=== PATIENT | female | born 1990 | race Caucasian/White ===

== ENCOUNTER 2022-09-09 07:46 | Day surgery (SDC) | payer OTHER ==
[~2022-09-09] VITALS: Ht 160 cm; Wt 77.1 kg
[~2022-09-09 07:46] MED LIST: BACTRIM DS1 TAB PO; CHERATUSSIN OR; CIPROFLOXACN500 MG PO; PYRIDIUM200 MG PO; TRI-SPRINTEC PO; ZYRTEC-D AL1 OR
[2022-09-09] MEDS ORDERED: PERCOCET 5/321 COMBO PO (09:38)
[2022-09-09 10:14] VITALS: BP 117/80
== END 2022-09-09 10:35 | disposition home or self-care (01) | DRG 419 ==
LOC: ORM 07:46
PROVIDERS: ATTEND Surgery
PROC: 0FT44ZZ Resection of Gallbladder, Percutaneous Endoscopic Approach (ICD-10-PCS; principal; 2022-09-09)
DX: K80.12 Calculus of gallbladder with acute and chronic cholecystitis without obstruction (principal)
CPT/HCPCS: J0131; S0077